=== PATIENT | male | born 1985 | race Caucasian/White ===

== ENCOUNTER 2022-06-13 22:20 | Emergency (ER) | payer OTHER ==
[2022-06-13 22:33] VITALS: BP 127/88; PULSE 95; RESP 18; TEMP 97.9; BMI 33.0
[2022-06-13] MEDS ORDERED: KETOROLAC TROMETHAMINE 30 MG/1 ML VIAL IM ONE (23:19)
[2022-06-13] MEDS ORDERED: KETOROLAC TROMETHAMINE 30 MG/1 ML VIAL ONE (23:27)
== END 2022-06-13 23:57 | disposition home or self-care (01) ==
LOC: JER 22:20
PROC: 3E023GC Introduction of Other Therapeutic Substance into Muscle, Percutaneous Approach (ICD-10-PCS; principal; 2022-06-13)
DX: S93.402A Sprain of unspecified ligament of left ankle, initial encounter (principal); W07.XXXA Fall from chair, initial encounter
CPT/HCPCS: 73610-TC-LT-FY; 73630-TC-LT; 99284-25

== ENCOUNTER 2023-04-29 08:49 | Emergency (ER) | payer OTHER ==
[2023-04-29 09:06] VITALS: BP 133/87; PULSE 73; RESP 17; TEMP 98.7; BMI 37.3
[2023-04-29] MEDS ORDERED: IBUPROFEN 400 MG TABLET (FP) PO ONE ×2 (11:15→11:39)
[2023-04-29] MEDS ORDERED: LIDOCAINE 5% TOPICAL PATCH TP ONE (11:15)
[2023-04-29] MEDS ORDERED: LIDOCAINE 4% PATCH TP ONE ×2 (11:39)
[2023-04-29] MEDS ORDERED: LIDOCAINE PATCH REMOVAL MC ONE ×2 (22:00)
== END 2023-04-29 13:16 | disposition home or self-care (01) ==
LOC: JERFT 08:49
DX: M25.572 Pain in left ankle and joints of left foot (principal); M54.2 Cervicalgia; M54.50 Low back pain, unspecified; V49.00XA Driver injured in collision with unspecified motor vehicles in nontraffic accident, initial encounter; Y93.I9 Activity, other involving external motion; Y93.9 Activity, unspecified
CPT/HCPCS: 73610-TC-LT-FY; 99283-25

== ENCOUNTER 2024-06-23 04:14 | Day surgery (SDC) | payer OTHER ==
[2024-06-19 14:57] VITALS: BMI 37.3
[2024-06-23 08:59] VITALS: RESP 18
[2024-06-23] MEDS ORDERED: MIDAZOLAM HCL 2 MG/2 ML SINGLE DOSE VIAL ONE (10:20)
[2024-06-23] MEDS: BUPIVACAINE HCL/PF 0.25% (2.5MG/ML) 10 ML VIAL IJ ONE (10:27)
[2024-06-23] MEDS: LIDOCAINE HCL 1% PRESERVATIVE FREE - 30ML VIAL IJ ONE ×2 (10:27)
[2024-06-23] MEDS: IOHEXOL 180 MG/1 ML ML IJ ONE (10:28)
[2024-06-23] MEDS: DEXAMETHASONE SOD PHOSPHATE 10 MG/1 ML VIAL IVPUSH ONE (10:28)
[2024-06-23 15:17] VITALS: BP 127/87; PULSE 73; TEMP 97.9
== END 2024-06-23 11:26 | disposition home or self-care (01) ==
LOC: JASU-SURG 04:14
PROVIDERS: ATTEND Physical Medicine & Rehabilitation
PROC: 3E0R3BZ Introduction of Anesthetic Agent into Spinal Canal, Percutaneous Approach (ICD-10-PCS; 2024-06-23)
PROC: 3E0R33Z Introduction of Anti-inflammatory into Spinal Canal, Percutaneous Approach (ICD-10-PCS; principal; 2024-06-23 11:30)
DX: M54.16 Radiculopathy, lumbar region (principal)
CPT/HCPCS: 76000-TC-FY; J1100